=== PATIENT | female | born 1985 | race Caucasian/White ===

== ENCOUNTER → 2017-07-05 | Emergency (ER) | payer OTHER ==
[~2017-07-05] VITALS: Ht 154.9 cm; Wt 49.9 kg
[~2017-07-05] MED LIST: COZAAR50 MG
== END | disposition home or self-care (01) ==
LOC: ER 09:30
DX: R53.1 Weakness (principal)

== ENCOUNTER 2017-07-15 12:51 | Inpatient (IN) | payer OTHER ==
[~2017-07-15] VITALS: Ht 154.9 cm; Wt 49.9 kg
[2017-07-18] MEDS ORDERED: INTEGRA CAPSUL1 EACH PO (13:51)
== END 2017-07-18 14:22 | disposition home or self-care (01) | DRG 869 ==
LOC: ER 12:51 → SEC-K 19:11 → MEDI 19:11 → SURH 20:23 → MEDI 22:56
PROC: BW28ZZZ Computerized Tomography (CT Scan) of Head (ICD-10-PCS; 2017-07-15)
PROC: 8E0ZXY6 Isolation (ICD-10-PCS; 2017-07-15)
PROC: B030ZZZ Magnetic Resonance Imaging (MRI) of Brain (ICD-10-PCS; principal; 2017-07-17)
PROC: BW41ZZZ Ultrasonography of Abdomen and Pelvis (ICD-10-PCS; 2017-07-17)
DX: A01.0 Typhoid fever (principal); Z22.0 Carrier of typhoid; D58.2 Other hemoglobinopathies
CPT/HCPCS: 70551